=== PATIENT | male | born 1995 | race Caucasian/White ===

== ENCOUNTER 2021-03-27 15:40 | Emergency (ER) | payer SELFPAY ==
--- NOTE | 2021-03-27 16:25 | EDM.PDOC ---
ED HPI GENERAL MEDICAL PROBLEM - General Chief Complaint: Neurological Problem Stated Complaint: MEDICAL VIA [facility] Time Seen by Provider: 03/27/21 16:22 Source of Information: Reports: Patient, Family History Limitations: Reports: No Limitations - History of Present Illness INITIAL COMMENTS - FREE TEXT/NARRATIVE: pt was at a family gathering today and had a first time tonic clonic seizure. He did not injure himself. Therwe does not appear to be a significant seizure history in the family. Onset: Today, Sudden Duration: Minutes: Location: Reports: Generalized Associated Symptoms: Reports: Seizure Oral/Mouth Pain Score (Numeric/FACES): 3 - Related Data Allergies Allergy/AdvReac Type Severity Reaction Status Date / Time No Known Allergies Allergy Verified 03/27/21 16:03 Home Meds: Home Meds NK [No Known Home Meds] 03/27/21 [History] Past Medical History Musculoskeletal History: Reports: Fracture - Past Surgical History Musculoskeletal Surgical History: Reports: Other (See Below) Other Musculoskeletal Surgeries/Procedures:: surgical procedure on ankle. Social & Family History - Tobacco Use Tobacco Use Status *Q: Light Tobacco User Years of Tobacco use: 10 Packs/Tins Daily: 0.7 - Caffeine Use Caffeine Use: Reports: Coffee, Soda - Alcohol Use Days Per Week of Alcohol Use: 7 Number of Drinks Per Day: 6 Total Drinks Per Week: 42 - Recreational Drug Use Recreational Drug Use: No ED ROS GENERAL - Review of Systems Review Of Systems: See Below Constitutional: Reports: Weakness HEENT: Reports: No Symptoms Respiratory: Reports: No Symptoms Cardiovascular: Reports: No Symptoms Endocrine: Reports: No Symptoms GI/Abdominal: Reports: No Symptoms : Reports: No Symptoms Musculoskeletal: Reports: No Symptoms Skin: Reports: No Symptoms Neurological: Reports: Seizure Psychiatric: Reports: Anxiety - Physical Exam Exam: See Below Text/Narrative:: pt looks like he may be drinking heavily and looks dehydrasted. He did have full blown seizure this pm at a family gathering. Exam Limited By: No Limitations General Appearance: Alert, No Apparent Distress, Anxious, Other (pupils are equal and reactive. ) Ears: Normal TMs Nose: Normal Inspection Throat/Mouth: Other (pt did chew his tongue on the rt side during the seizure. ) Head Exam: Atraumatic Neck: Normal Inspection Respiratory/Chest: No Respiratory Distress Cardiovascular: Regular Rate, Rhythm GI/Abdominal: Soft, Non-Tender (Male) Exam: Deferred Rectal (Males) Exam: Deferred Neuro Exam (Abbreviated): Alert, Oriented, Normal Cognition Back Exam: Normal Inspection Extremities: Normal Inspection Psychiatric: Depressed Mood Course - Vital Signs Last Recorded V/S: Last Vital Signs Temp 36.7 C 03/27/21 15:59 Pulse 82 03/27/21 17:19 Resp 18 03/27/21 17:19 BP 154/86 H 03/27/21 17:19 Pulse Ox 96 03/27/21 17:19 - Orders/Labs/Meds Labs: Laboratory Tests 03/27/21 03/27/21 03/27/21 Range/Units 16:17 16:17 16:17 WBC 10.3 (4.5-11.0) K/uL RBC 5.50 (4.30-5.90) M/uL Hgb 17.7 H (12.0-15.0) g/dL Hct 51.0 (40.0-54.0) % MCV 93 (80-98) fL MCH 32 H (27-31) pg MCHC 35 (32-36) % Plt Count 135 L (150-400) K/uL Neut % (Auto) 86.4 H (36-66) % Lymph % (Auto) 5.2 L (24-44) % [place] % (Auto) 7.8 H (2-6) % Eos % (Auto) 0.3 L (2-4) % Baso % (Auto) 0.3 (0-1) % Sodium 135 L (140-148) mmol/L Potassium 4.2 (3.6-5.2) mmol/L Chloride 98 L (100-108) mmol/L Carbon Dioxide 28 (21-32) mmol/L Anion Gap 13.2 (5.0-14.0) mmol/L BUN 8 (7-18) mg/dL Creatinine 0.8 (0.8-1.3) mg/dL Est Cr Clr Drug Dosing 147.72 mL/min Estimated GFR (MDRD) > 60 (>60) Glucose 111 H (74-106) mg/dL Calcium 9.0 (8.5-10.1) mg/dL Total Bilirubin 1.1 H (0.2-1.0) mg/dL AST 128 H (15-37) U/L ALT 168 H (12-78) U/L Alkaline Phosphatase 93 (46-116) U/L Total Protein 8.0 (6.4-8.2) g/dL Albumin 4.0 (3.4-5.0) g/dL Globulin 4.0 H (2.3-3.5) g/dL Albumin/Globulin Ratio 1.0 L (1.2-2.2) Urine Color (YELLOW) Urine Appearance (CLEAR) Urine pH (5.0-8.0) Ur Specific [place] (1.008-1.030) Urine Protein (NEGATIVE) mg/dL Urine Glucose (UA) (NEGATIVE) mg/dL Urine Ketones (NEGATIVE) mg/dL Urine Occult Blood (NEGATIVE) Urine Nitrite (NEGATIVE) Urine Bilirubin (NEGATIVE) Urine Urobilinogen (0.2-1.0) EU/dL Ur Leukocyte Esterase (NEGATIVE) Urine RBC (0-5) Urine WBC (0-5) Ur Epithelial Cells Amorphous Sediment Urine Bacteria Urine Mucus Urine Opiates Screen (NEGATIVE) Ur Oxycodone Screen (NEGATIVE) Urine Methadone Screen (NEGATIVE) Ur Propoxyphene Screen (NEGATIVE) Ur Barbiturates Screen (NEGATIVE) Ur Tricyclics Screen (NEGATIVE) Ur Phencyclidine Scrn (NEGATIVE) Ur Amphetamine Screen (NEGATIVE) U Methamphetamines Scrn (NEGATIVE) Urine MDMA Screen (NEGATIVE) U Benzodiazepines Scrn (NEGATIVE) U Cocaine Metab Screen (NEGATIVE) U Marijuana (THC) Screen (NEGATIVE) Ethyl Alcohol < 3 mg/dL 03/27/21 03/27/21 Range/Units 16:55 16:55 WBC (4.5-11.0) K/uL RBC (4.30-5.90) M/uL Hgb (12.0-15.0) g/dL Hct (40.0-54.0) % MCV (80-98) fL MCH (27-31) pg MCHC (32-36) % Plt Count (150-400) K/uL Neut % (Auto) (36-66) % Lymph % (Auto) (24-44) % [place] % (Auto) (2-6) % Eos % (Auto) (2-4) % Baso % (Auto) (0-1) % Sodium (140-148) mmol/L Potassium (3.6-5.2) mmol/L Chloride (100-108) mmol/L Carbon Dioxide (21-32) mmol/L Anion Gap (5.0-14.0) mmol/L BUN (7-18) mg/dL Creatinine (0.8-1.3) mg/dL Est Cr Clr Drug Dosing mL/min Estimated GFR (MDRD) (>60) Glucose (74-106) mg/dL Calcium (8.5-10.1) mg/dL Total Bilirubin (0.2-1.0) mg/dL AST (15-37) U/L ALT (12-78) U/L Alkaline Phosphatase (46-116) U/L Total Protein (6.4-8.2) g/dL Albumin (3.4-5.0) g/dL Globulin (2.3-3.5) g/dL Albumin/Globulin Ratio (1.2-2.2) Urine Color Yellow (YELLOW) Urine Appearance Slightly cloudy A (CLEAR) Urine pH 8.5 H (5.0-8.0) Ur Specific [place] 1.025 (1.008-1.030) Urine Protein >=300 H (NEGATIVE) mg/dL Urine Glucose (UA) Negative (NEGATIVE) mg/dL Urine Ketones Trace H (NEGATIVE) mg/dL Urine Occult Blood Trace-intact H (NEGATIVE) Urine Nitrite Negative (NEGATIVE) Urine Bilirubin Negative (NEGATIVE) Urine Urobilinogen 0.2 (0.2-1.0) EU/dL Ur Leukocyte Esterase Negative (NEGATIVE) Urine RBC 0-5 (0-5) Urine WBC 0-5 (0-5) Ur Epithelial Cells Rare Amorphous Sediment Not seen Urine Bacteria Not seen Urine Mucus Many Urine Opiates Screen Negative (NEGATIVE) Ur Oxycodone Screen Negative (NEGATIVE) Urine Methadone Screen Negative (NEGATIVE) Ur Propoxyphene Screen Negative (NEGATIVE) Ur Barbiturates Screen Negative (NEGATIVE) Ur Tricyclics Screen Negative (NEGATIVE) Ur Phencyclidine Scrn Negative (NEGATIVE) Ur Amphetamine Screen Negative (NEGATIVE) U Methamphetamines Scrn Negative (NEGATIVE) Urine MDMA Screen Negative (NEGATIVE) U Benzodiazepines Scrn Negative (NEGATIVE) U Cocaine Metab Screen Negative (NEGATIVE) U Marijuana (THC) Screen Negative (NEGATIVE) Ethyl Alcohol mg/dL Meds: Medications Discontinued Medications Generic Name Dose Route Start Last Admin Trade Name Freq PRN Reason Stop Dose Admin Sodium Chloride 1,000 mls @ 999 mls/hr 03/27/21 16:45 03/27/21 17:19 Normal Saline IV 999 mls/hr ASDIRECTED DARIEN Administration Sodium Chloride 1,000 mls @ 999 mls/hr 03/27/21 17:15 03/27/21 18:21 Normal Saline IV 999 mls/hr ASDIRECTED DARIEN Administration - Re-Assessments/Exams Free Text/Narrative Re-Assessment/Exam: 03/27/21 17:23 cat scan was neg. His lab work show dehydration. His drug screen is neg. 03/27/21 18:30 pt has elevated liver enzymes. He has not had further seizure activity. 03/28/21 07:36 pt does drink 6-8 beers daily. His father thought even more. He is having a difficult time with his girl friend. He may hav tried to taper down on the drinking because of the family gatherings. Departure - Departure Time of Disposition: 19:25 Disposition: Home, Self-Care 01 Condition: Fair Clinical Impression: Dehydration, ETOH abuse - Discharge Information Instructions: Dehydration, Adult, [id number] Referrals: PCP,None [Primary Care Provider] - Forms: ED Department Discharge Care Plan Goals: because of the seizure pt should not drive for 1 month, follow up with Dr Lipscomb regarding seizure activity and his resuming driving. Push fluids, try hard to taper on the amount of drinking. Sepsis Event Note (ED) - Evaluation Sepsis Screening Result: No Definite Risk
[2021-03-27] MEDS ORDERED: Sodium Chloride 0.9% 1,000 ML IV SCH ×2 (16:45→17:15)
--- NOTE | 2021-03-27 17:08 | CRLCT ---
For Patients: As a result of the Century Cures Act, medical imaging exams and procedure reports are released immediately into your electronic medical record. You may view this report before your referring provider. If you have questions, please contact your health care provider. INDICATION: First-time seizure. COMPARISON: None. TECHNIQUE: CT of the head without IV contrast. Coronal and sagittal reconstructions are provided. FINDINGS: No intracranial hemorrhage, mass effect, or evidence of acute infarct. No midline shift. No abnormal extra-axial fluid collections. Normal caliber ventricular system. Orbits and extraocular muscles are symmetric. The paranasal sinuses and mastoid air cells are clear. No acute fracture identified. Minimal soft tissue swelling overlying the occiput. IMPRESSION: : 1. No acute intracranial findings. 2. Minimal soft tissue swelling overlying the occiput. Please note that all CT scans at this facility use dose modulation, iterative reconstruction, and/or weight-based dosing when appropriate to reduce radiation dose to as low as reasonably achievable. Dictated by Selin Harden MD @ 03/27/2021 5:06:54 PM (Electronically Signed)
== END 2021-03-27 19:24 | disposition home or self-care (01) ==
LOC: JP.ED 15:40
DX: E86.0 Dehydration (principal); F10.10 Alcohol abuse, uncomplicated; Y90.0 Blood alcohol level of less than 20 mg/100 ml; Z72.0 Tobacco use
CPT/HCPCS: 36415; 70450; 80053; 80305; 80307; 81001; 85025; 99285; J7030

== ENCOUNTER 2021-05-03 09:10 | Emergency (ER) | payer SELFPAY ==
[2021-05-03] MEDS ORDERED: ceFAZolin 1 GM in Sodium Chloride 0.9% 50 ML IV ONE (11:23)
[2021-05-03] MEDS ORDERED: Lidocaine 1% with EPINEPHrine 1:100,000 50 ML MDV INFILT ONE (11:23)
== END 2021-05-03 12:55 | disposition home or self-care (01) ==
LOC: JP.ED 09:10
DX: S01.21XA Laceration without foreign body of nose, initial encounter (principal); F10.230 Alcohol dependence with withdrawal, uncomplicated; F17.210 Nicotine dependence, cigarettes, uncomplicated; W22.8XXA Striking against or struck by other objects, initial encounter
CPT/HCPCS: 12014; 36415; 70486; 70551; 80053; 80307; 85025; 96365; 99285; J0690

== ENCOUNTER 2022-05-23 10:22 | Inpatient (IN) | payer SELFPAY ==
[2022-05-23] MEDS ORDERED: Sodium Chloride 0.9% 10 ML Syringe FLUSH PRN (10:29)
[2022-05-23] MEDS ORDERED: Ketorolac 30 MG/ML SDV IVPUSH ONE (10:36)
[2022-05-23] MEDS ORDERED: Ondansetron 4 MG/2 ML SDV IVPUSH ONE (10:36)
[2022-05-23] MEDS ORDERED: Pantoprazole 80 MG in Sodium Chloride 0.9% 100 ML IV ONE (10:38)
[2022-05-23 11:05] LABS: ESTIMATED GFR 119 mL/min (>60)
[2022-05-23] MEDS ORDERED: Iopamidol 612 MG/ML 500 ML Multipack Bottle IV ONE (11:08)
[2022-05-23] MEDS ORDERED: HYDROmorphone 1 MG/ML Syringe IVPUSH ONE (11:14)
[2022-05-23] MEDS ORDERED: Sodium Chloride 0.9% 50 ML IV SCH (11:15)
[2022-05-23] MEDS ORDERED: Lactated Ringers 1,000 ML IV ONE (11:18)
[2022-05-23 13:00] LABS: CORONAVIRUS COVID-19 NAA NEGATIVE (NEGATIVE)
[2022-05-23] MEDS: Lactated Ringers 1,000 ML IV SCH ×2 (14:31→20:48)
[2022-05-23] MEDS ORDERED: HYDROmorphone 0.5 MG/0.5 ML Syringe IVPUSH ONE (14:58)
[2022-05-23] MEDS ORDERED: Ondansetron 4 MG Tab.DIS PO PRN (17:35)
[2022-05-23] MEDS ORDERED: Nicotine 14 MG/24 Hr Patch TRDERM PRN (17:35)
[2022-05-23] MEDS ORDERED: Ondansetron 4 MG/2 ML SDV IV PRN (17:35)
[2022-05-23] MEDS ORDERED: Melatonin 3 MG Tab PO PRN (17:35)
[2022-05-23] MEDS ORDERED: Magnesium Hydroxide 400 MG/5 ML Susp 30 ML Cup PO PRN (17:35)
[2022-05-23] MEDS: HYDROmorphone 1 MG/ML Syringe IVPUSH PRN ×2 (18:08→23:07)
[2022-05-23] MEDS: Acetaminophen 325 MG Tab PO PRN (19:58)
[2022-05-23] MEDS ORDERED: Lactated Ringers 500 ML IV ONE (21:30)
[2022-05-24 01:55] LABS: ESTIMATED GFR 94 mL/min (>60)
[2022-05-24] MEDS: Magnesium Sulfate/Water 2 GM in Premix Bag 1 BAG IV SCH ×4 (02:21→20:09)
[2022-05-24] MEDS ORDERED: LORazepam 1 MG Tab PO ONE (02:42)
[2022-05-24] MEDS: Lactated Ringers 1,000 ML IV SCH ×3 (04:29→18:26)
[2022-05-24] MEDS: Pantoprazole 40 MG Vial IV SCH (08:35)
[2022-05-24] MEDS: HYDROmorphone 1 MG/ML Syringe IVPUSH PRN (14:08)
[2022-05-24] MEDS: Acetaminophen 325 MG Tab PO PRN (14:30)
[2022-05-25] MEDS: Lactated Ringers 1,000 ML IV SCH ×2 (01:08→07:39)
[2022-05-25] MEDS: Magnesium Sulfate/Water 2 GM in Premix Bag 1 BAG IV SCH (02:17)
[2022-05-25 06:08] LABS: ESTIMATED GFR 124 mL/min (>60)
[2022-05-25] MEDS: Acetaminophen 325 MG Tab PO PRN ×2 (07:43→17:02)
[2022-05-25] MEDS: Pantoprazole 40 MG Vial IV SCH (09:10)
[2022-05-25] MEDS ORDERED: oxyCODONE 5 MG Tab PO PRN (09:39)
[2022-05-25] MEDS ORDERED: Atropine/Diphenoxylate 0.025-2.5 MG Tab PO ONE (22:58)
[2022-05-26 04:55] LABS: ESTIMATED GFR 124 mL/min (>60)
[2022-05-26] MEDS ORDERED: Pantoprazole 40 MG Tab.CR PO SCH (07:30)
== END 2022-05-26 10:45 | disposition home or self-care (01) | DRG 439 ==
LOC: JP.ED 10:22 → JP.ICU 17:06
PROVIDERS: ADMIT Internal Medicine; ATTEND Internal Medicine
DX: K85.20 Alcohol induced acute pancreatitis without necrosis or infection (principal); R65.10 Systemic inflammatory response syndrome (SIRS) of non-infectious origin without acute organ dysfunction; R74.01 Elevation of levels of liver transaminase levels; F17.210 Nicotine dependence, cigarettes, uncomplicated; R56.9 Unspecified convulsions; F10.20 Alcohol dependence, uncomplicated; Z20.822 Contact with and (suspected) exposure to COVID-19; I49.3 Ventricular premature depolarization
CPT/HCPCS: 0241U; 36415; 74177; 74177-26; 80053; 80307; 81001; 83690; 83735; 85025; 85027; 96361; 96365; 96375; 96376; 99285-25; A9270-GY; C9113; J1170; J1885; J2405; J3475; J3490; J7120; Q9967

== ENCOUNTER 2022-06-13 17:17 | Emergency (ER) | payer SELFPAY ==
[2022-06-13] MEDS ORDERED: Sodium Chloride 0.9% 1,000 ML IV STA (17:56)
[2022-06-13] MEDS ORDERED: Sodium Chloride 0.9% 10 ML Syringe FLUSH PRN (17:56)
[2022-06-13] MEDS ORDERED: Ketorolac 30 MG/ML SDV IVPUSH ONE (18:04)
[2022-06-13] MEDS ORDERED: Ondansetron 4 MG/2 ML SDV IVPUSH ONE (18:04)
[2022-06-13] MEDS ORDERED: Sodium Chloride 0.9% 1,000 ML IV SCH (18:15)
[2022-06-13 18:20] LABS: ESTIMATED GFR 119 mL/min (>60)
== END 2022-06-13 21:28 | disposition home or self-care (01) ==
LOC: JP.ED 17:17
DX: K85.20 Alcohol induced acute pancreatitis without necrosis or infection (principal); N30.00 Acute cystitis without hematuria; Z72.0 Tobacco use
CPT/HCPCS: 36415; 71046; 80053; 80307; 81001; 83605; 83690; 84484; 85025; 87086; 96361; 96374; 96375; 99284; J1885; J2405; J7030; 99283

== ENCOUNTER 2022-07-18 16:29 | Emergency (ER) | payer SELFPAY ==
[2022-07-18] MEDS ORDERED: Lactated Ringers 1,000 ML IV SCH (18:30)
[2022-07-18 18:58] LABS: ESTIMATED GFR 129 mL/min (>60)
[2022-07-18] MEDS ORDERED: HYDROmorphone 0.5 MG/0.5 ML Syringe IVPUSH ONE (19:28)
[2022-07-18] MEDS ORDERED: Sodium Chloride 0.9% 50 ML IV SCH (19:30)
[2022-07-18] MEDS ORDERED: Iopamidol 612 MG/ML 100 ML Bottle IV SCH (19:30)
== END 2022-07-18 22:20 | disposition other institution (70) ==
LOC: JP.ED 16:29
DX: K85.21 Alcohol induced acute pancreatitis with uninfected necrosis (principal); Z72.0 Tobacco use
CPT/HCPCS: 36415; 74177; 80053; 80307; 81001; 83605; 83690; 85025; 87086; 96361; 96374; 99285; J1170; J3490; J7120; Q9967; 99284

== ENCOUNTER 2022-10-12 11:28 | Emergency (ER) | payer SELFPAY ==
[2022-10-12 12:43] LABS: BASOPHILS ABSOLUTE AUTO 0.04 K/uL (0.00-0.10); BASOPHILS PERCENT AUTO 0.6 % (0.1-1.3); EOSINOPHILS ABSOLUTE AUTO 0.16 K/uL (0.00-0.40); EOSINOPHILS PERCENT AUTO 2.5 % (0.0-5.4); HEMATOCRIT 38.9 % (38.4-49.7); IMMATURE GRAN ABSOLUTE AUTO 0.01 K/uL (0.00-0.23); IMMATURE GRAN PERCENT AUTO 0.2 % (0.0-0.7); LYMPHOCYTES ABSOLUTE AUTO 1.31 K/uL (0.8-3.3); LYMPHOCYTES PERCENT AUTO 20.5 % (11.4-47.7); MEAN CORPUSCULAR HEMOGLOBIN 28.4 pg (31.6-35.5); MEAN CORPUSCULAR HGB CONC 33.4 g/dL (31.6-35.5); MEAN CORPUSCULAR VOLUME 85.1 fL (81.4-99.0); MONOCYTES ABSOLUTE AUTO 0.61 K/uL (0.20-0.90); MONOCYTES PERCENT AUTO 9.6 % (3.3-12.6); NEUTROPHILS ABSOLUTE AUTO 4.25 K/uL (1.0-7.6); NEUTROPHILS PERCENT AUTO 66.6 % (40.0-78.1); PLATELET COUNT,PLT 232 K/uL (130-375); RED BLOOD CELL COUNT 4.57 M/uL (4.14-5.76); WHITE BLOOD CELL COUNT,WBC 6.4 K/uL (3.2-11.0)
[2022-10-12 13:04] LABS: A/G RATIO 0.7 (1.2-2.2); ALANINE AMINOTRANSFERASE,ALT 21 U/L (12-78); ALBUMIN 3.2 g/dL (3.4-5.0); ALKALINE PHOSPHATASE 89 U/L (46-116); ASPARTATE AMNIOTRANSFERASE,AST 17 U/L (15-37); BILIRUBIN TOTAL 0.6 mg/dL (0.2-1.0); BLOOD UREA NITROGEN,BUN 8 mg/dL (7-18); CALCIUM 9.1 mg/dL (8.5-10.1); CARBON DIOXIDE,CO2 30 mmol/L (21-32); CHLORIDE,CL 100 mmol/L (100-108); CREATININE 0.7 mg/dL (0.8-1.3); ESTIMATED GFR 128 mL/min (>60); GLUCOSE RANDOM 87 mg/dL (74-106); POTASSIUM,K 3.3 mmol/L (3.6-5.2); SODIUM,NA 139 mmol/L (140-148)
[2022-10-12 13:06] LABS: ANION GAP 12.3 mmol/L (5.0-14.0)
[2022-10-12] MEDS ORDERED: Sodium Chloride 0.9% 10 ML Syringe FLUSH PRN (13:14)
[2022-10-12] MEDS: Pantoprazole 40 MG Tab.CR PO SCH (13:27)
[2022-10-12] MEDS ORDERED: Naloxone 0.4 MG/ML SDV IVPUSH PRN (13:51)
[2022-10-12] MEDS: HYDROmorphone 1 MG/ML Syringe IM ONE (13:55)
== END 2022-10-12 15:07 | disposition home or self-care (01) ==
LOC: JP.ED 11:28
DX: K85.90 Acute pancreatitis without necrosis or infection, unspecified (principal); F17.210 Nicotine dependence, cigarettes, uncomplicated
CPT/HCPCS: 36415; 74181; 80053; 83690; 85025; 96372; 99285; A9270; J1170

== ENCOUNTER 2022-12-14 20:50 | Emergency (ER) | payer SELFPAY ==
[2022-12-14 22:30] LABS: BASOPHILS PERCENT AUTO 0.2 % (0.1-1.3); EOSINOPHILS ABSOLUTE AUTO 0.06 K/uL (0.00-0.40); EOSINOPHILS PERCENT AUTO 0.5 % (0.0-5.4); HEMATOCRIT 44.1 % (38.4-49.7); HEMOGLOBIN 14.9 g/dL (12.9-16.9); IMMATURE GRAN ABSOLUTE AUTO 0.04 K/uL (0.00-0.23); IMMATURE GRAN PERCENT AUTO 0.3 % (0.0-0.7); LYMPHOCYTES ABSOLUTE AUTO 0.96 K/uL (0.8-3.3); LYMPHOCYTES PERCENT AUTO 7.6 % (11.4-47.7); MEAN CORPUSCULAR HEMOGLOBIN 30.1 pg (31.6-35.5); MEAN CORPUSCULAR HGB CONC 33.8 g/dL (31.6-35.5); MEAN CORPUSCULAR VOLUME 89.1 fL (81.4-99.0); MONOCYTES ABSOLUTE AUTO 1.04 K/uL (0.20-0.90); MONOCYTES PERCENT AUTO 8.3 % (3.3-12.6); NEUTROPHILS ABSOLUTE AUTO 10.46 K/uL (1.0-7.6); NEUTROPHILS PERCENT AUTO 83.1 % (40.0-78.1); PLATELET COUNT,PLT 228 K/uL (130-375); RED BLOOD CELL COUNT 4.95 M/uL (4.14-5.76); WHITE BLOOD CELL COUNT,WBC 12.6 K/uL (3.2-11.0)
[2022-12-14 22:32] LABS: BASOPHILS ABSOLUTE AUTO 0.02 K/uL (0.00-0.10)
[2022-12-14 22:40] LABS: A/G RATIO 0.8 (1.2-2.2); ALANINE AMINOTRANSFERASE,ALT 13 U/L (12-78); ALBUMIN 2.9 g/dL (3.4-5.0); ALKALINE PHOSPHATASE 73 U/L (46-116); ASPARTATE AMNIOTRANSFERASE,AST 11 U/L (15-37); BILIRUBIN TOTAL 2.5 mg/dL (0.2-1.0); BLOOD UREA NITROGEN,BUN 11 mg/dL (7-18); CALCIUM 8.3 mg/dL (8.5-10.1); CARBON DIOXIDE,CO2 28 mmol/L (21-32); CHLORIDE,CL 97 mmol/L (100-108); CREATININE 0.7 mg/dL (0.8-1.3); ESTIMATED GFR 128 mL/min (>60); GLUCOSE RANDOM 107 mg/dL (74-106); POTASSIUM,K 3.7 mmol/L (3.6-5.2); PROTEIN TOTAL,TP 6.7 g/dL (6.4-8.2); SODIUM,NA 133 mmol/L (140-148)
[2022-12-14 22:47] LABS: ANION GAP 11.7 mmol/L (5.0-14.0)
[2022-12-14] MEDS ORDERED: Pantoprazole 40 MG Vial IVPUSH ONE (23:30)
== END 2022-12-14 23:59 | disposition home or self-care (01) ==
LOC: JP.ED 20:50
DX: R11.10 Vomiting, unspecified (principal); F17.210 Nicotine dependence, cigarettes, uncomplicated
CPT/HCPCS: 36415; 80053; 83605; 83690; 85025; 96374; 99284; C9113; 99283